=== PATIENT | female | born 1985 | race Caucasian/White ===

== ENCOUNTER 2018-03-21 17:24 | Emergency (ER) | payer MEDICAID, OTHER ==
[2018-03-21 18:53] LABS: URINE BLOOD (Dip) POC 3+ (NEGATIVE); URINE GLUCOSE (Dip) POC Negative (NEGATIVE); URINE KETONES (Dip) POC Negative (NEGATIVE); URINE LEUKOCYTE EST (Dip) POC Trace (NEGATIVE); URINE NITRITE (Dip) POC Negative (NEGATIVE); URINE TOTAL PROTEIN POC 1+ (NEGATIVE)
[2018-03-21 18:53] LABS: URINE PH (Dip) POC 6.5 (5.0-8.5)
== END 2018-03-21 21:15 | disposition home or self-care (01) ==
LOC: FTE 17:24
DX: O03.9 Complete or unspecified spontaneous abortion without complication (principal); R10.2 Pelvic and perineal pain
CPT/HCPCS: 76801; 76817; 81003; 84702; 99284-25